=== PATIENT | male | born 1995 | race Caucasian/White ===

== ENCOUNTER 2020-03-15 20:19 | Emergency (ER) | payer OTHER ==
--- NOTE | 2020-03-15 20:38 | EDM.PDOC ---
ED HPI GENERAL MEDICAL PROBLEM - General Chief Complaint: Lower Extremity Injury/Pain Stated Complaint: R GREAT TOE INJURY Time Seen by Provider: 03/15/20 20:30 Source of Information: Reports: Patient History Limitations: Reports: No Limitations - History of Present Illness INITIAL COMMENTS - FREE TEXT/NARRATIVE: In the emergency department complaint of a right great toe injury. Patient states that he was at a local basketball game going out for the ball when he came back down his right great toe hyperextend causing a popping sensation immediately. Patient states that he was able to get up on his own without any assistance. He states that he felt initial pain in the right great toe region especially when trying to place weight on that toe. He is able to move that ext remity on his own however he states there is pain and discomfort when trying to move it. Patient did notice that looked abnormal compared to his other toe. He was assessed by a sports athletic trainer who suggested that he come to the emergency department for further evaluation and management. Patient denies any recent injury or major surgeries on the right lower extremity. Patient states has been relatively healthy has no other major concerns or complaints. He states that when he is resting he has no major pain however when he tries to move that big toe he does have pain. Did not take any medications or have ice prior to arrival Onset: Sudden Quality: Reports: Throbbing Severity: Mild Improves with: Reports: Rest Worsens with: Reports: Movement Context: Reports: Activity Associated Symptoms: Reports: No Other Symptoms Right Great Toe Pain Score (Numeric/FACES): 4 - Related Data Allergies Allergy/AdvReac Type Severity Reaction Status Date / Time Sulfa (Sulfonamide Allergy Hives Verified 03/15/20 20:32 Antibiotics) Home Meds: Home Meds . [Unable to Verify Home Med List] 03/15/20 [History] Review of Systems - Review of Systems Review Of Systems: Comprehensive ROS is negative, except as noted in HPI. Constitutional: Reports: No Symptoms Ears: Reports: No Symptoms Nose: Reports: No Symptoms Mouth/Throat: Reports: No Symptoms Respiratory: Reports: No Symptoms Cardiovascular: Reports: No Symptoms ED EXAM, GENERAL - Physical Exam Exam: See Below Exam Limited By: No Limitations General Appearance: Alert, WD/WN, No Apparent Distress Nose: Normal Inspection, Normal Mucosa, No Blood Head: Atraumatic, Normocephalic Neck: Normal Inspection, Supple, Non-Tender, Full Range of Motion Respiratory/Chest: No Respiratory Distress, No Accessory Muscle Use, Chest Non- Tender Cardiovascular: Normal Peripheral Pulses, Regular Rate, Rhythm, No Edema Peripheral Pulses: 4+: Popliteal (L), Popliteal (R), Dorsalis Pedis (L), Dorsalis Pedis (R) Back Exam: Normal Inspection, Full Range of Motion Extremities: Normal Range of Motion, No Pedal Edema, Normal Capillary Refill, Other (right toe- deformity noted, mild swelling, limited ROM ) Neurological: Alert, Oriented, CN II-XII Intact Psychiatric: Normal Affect, Normal Mood Skin Exam: Warm, Dry, Intact, Normal Color ED TRAUMA EXTREMITY PROCEDURES - Joint Reduction Right Toes Sedation: Other Technique: Traction/Counter Traction Number of Attempts: 1 Post-Reduction Imaging: Completely Reduced, No Fracture Seen Joint Reduction Complications: No Progress/Comments: CMS intact prior and post procedure pain level minimal upon completion Course - Vital Signs Last Recorded V/S: Last Vital Signs Temp 36.8 C 03/15/20 20:33 Pulse 94 03/15/20 20:33 Resp 16 03/15/20 20:33 BP 129/83 03/15/20 20:33 Pulse Ox 100 03/15/20 20:33 - Orders/Labs/Meds Orders: Active Orders 24 hr Category Date Time Status Toes Great Toe Rt T5 [CR] Stat Exams 03/15/20 20:36 Taken Meds: Medications Discontinued Medications Generic Name Dose Route Start Last Admin Trade Name Freq PRN Reason Stop Dose Admin Oxycodone/Acetaminophen 1 tab 03/15/20 20:33 03/15/20 20:40 Percocet 325-5 Mg PO 03/15/20 20:34 1 tab ONETIME ONE Administration Departure - Departure Time of Disposition: 21:10 Disposition: Home, Self-Care 01 Condition: Good Clinical Impression: Traumatic dislocation of right great toe Qualifiers: Encounter type: initial encounter Qualified Code(s): S93.104A - Unspecified dislocation of right toe(s), initial encounter - Discharge Information *PRESCRIPTION DRUG MONITORING PROGRAM REVIEWED*: Not Applicable *COPY OF PRESCRIPTION DRUG MONITORING REPORT IN PATIENT TISHA: Not Applicable Instructions: Toe Dislocation, [id number] Forms: ED Department Discharge Additional Instructions: 1. Rest 2. wear splint for 5-7 days as needed to help with any pain or discomfort 3. Can use tylenol and ibuprofen as needed for pain and discomfort 4. Diet as tolerated 5. Activity as tolerated 6. Elevated the injured area above the level of the heart to decrease swelling and discomfort. 7. Use ice 3-4 times a day at 20-minute intervals to help with any swelling and discomfort 8. Follow-up with your primary care provider symptoms continue or to progress 9. Follow with any questions or concerns 10. Discharge information has been provided regarding your injury Sepsis Event Note (ED) - Focused Exam Vital Signs: Vital Signs Temp Pulse Resp BP Pulse Ox 03/15/20 20:33 36.8 C 94 16 129/83 100 - My Orders Last 24 Hours: My Active Orders 03/15/20 20:36 Toes Great Toe Rt T5 [CR] Stat - Assessment/Plan Last 24 Hours: My Active Orders 03/15/20 20:36 Toes Great Toe Rt T5 [CR] Stat Assessment:: 1. right great toe injury 2. right great toe dislocation Plan: 1. X-ray completed in the emergency department results reviewed with the patient 2. Ice Applied to the affected limb 3. Percocet 5mg PO given to the patient for pain and discomfort 4. Traction reduction of great toe without complications noted 5. Surgical shoe applied for comfort 6. Education regarding splinting, activity, [id number] medications, and follow-up care provided. 7. All questions and concerns addressed with the patient prior to discharge
[2020-03-15] MEDS: Acetaminophen/oxyCODONE 325-5 MG Tab PO ONE (20:40)
--- NOTE | 2020-03-15 23:28 | CR ---
[id number] RAD/RAD Toes Right EXAM: RAD Toes Right INDICATION: HYPEREXTENDED. COMPARISON: None. DISCUSSION: The distal first phalanx is dorsally and medially subluxed. No fracture is identified, but follow-up radiographs postreduction may be useful. Associated soft tissue swelling. No other osseous abnormality. IMPRESSION: 1. Subluxation of the distal first phalanx. Sachin Ferreira MD 03/15/20 [id number] Thank you for allowing us to participate in the care of your patient.
== END 2020-03-15 21:23 | disposition home or self-care (01) ==
LOC: VM.ED 20:19
DX: S93.104A Unspecified dislocation of right toe(s), initial encounter (principal); Z88.2 Allergy status to sulfonamides; W21.05XA Struck by basketball, initial encounter; Y93.67 Activity, basketball
CPT/HCPCS: 26770; 28660; 73660-T5; 99283; 99283-25; A9270-GY